=== PATIENT | male | born 1960 | race Caucasian/White ===

== ENCOUNTER 2018-02-08 17:48 | Emergency (ER) | payer OTHER ==
[~2018-02-08] VITALS: Ht 162.6 cm; Wt 57.8 kg
[2018-02-08] MEDS ORDERED: ACETAMINOPHEN 500 MG TABLET PO ONE (18:30)
[2018-02-08] MEDS ORDERED: SODIUM CHLORIDE 0.9% 1,000 ML IV ONE (18:43)
[2018-02-08 18:48] LABS: RAPID INFLUENZA A Negative (Negative); RAPID INFLUENZA B Negative (Negative)
--- NOTE | 2018-02-08 18:59 | NUR ---
PT WITH IV STARTED AND AWAITING CTA SCAN.
[2018-02-08 19:05] LABS: MEAN CORPUSCULAR HEMOGLOBIN 31.6 pg (27.5-34.5); MEAN CORPUSCULAR VOLUME 93.1 fL (81-97); MEAN PLATELET VOLUME 7.4 fL (7.4-10.4); PLATELET COUNT 242 x10^3/uL (130-400); RED BLOOD COUNT 4.35 x10^6/uL (4.38-5.82); RED CELL DISTRIBUTION WIDTH 14.5 % (9.4-14.8)
[2018-02-08] MEDS ORDERED: ACETAMINOPHEN 500 MG TABLET ONE (19:06)
[2018-02-08 19:07] LABS: HCT (SEDRATE) 41.3 % (39.2-51.8)
[2018-02-08 19:18] LABS: ANION GAP 10 mmol/L (5-15); CALCIUM 8.8 mg/dL (8.5-10.1); CHLORIDE 106 mmol/L (98-107)
[2018-02-08 19:21] LABS: BASOPHILS # (AUTO) 0.03 x10^3/uL (0-0.1); BASOPHILS % (AUTO) 0 % (0-1); EOSINOPHILS # (AUTO) 0.11 x10^3/uL (0-0.4); EOSINOPHILS % (AUTO) 1 % (1-7); LYMPHOCYTES # (AUTO) 0.53 x10^3/uL (1-3.4); LYMPHOCYTES % (AUTO) 5 % (22-44); MD SCAN; MONOCYTES # (AUTO) 1.68 x10^3/uL (0.2-0.8); MONOCYTES % (AUTO) 16 % (2-9); NEUTROPHILS # (AUTO) 7.95 x10^3/uL (1.8-6.8); NEUTROPHILS % (AUTO) 77 % (42-75)
[2018-02-08 19:28] LABS: CREATININE 0.81 mg/dL (0.7-1.3)
[2018-02-08] MEDS ORDERED: OMNIPAQUE 350 MG/ML, 100ML BOTTLE ONE (20:00)
--- NOTE | 2018-02-08 20:00 | NUR ---
PT AWAITING CTA RESULTS AND ERP RECHECK
--- NOTE | 2018-02-08 21:09 | NUR ---
TASK RN: Pt resting on gurney, placed on BP cuff and SpO2 monitor. VSS. Pt aware that we are waiting on lab results.
--- NOTE | 2018-02-08 21:14 | NUR ---
TASK RN: Dr. Danielson at bedside to discuss ED findings and POC. Pt given water to drink, per .
[2018-02-08] MEDS ORDERED: KETOROLAC 30 MG/1 ML ONE (21:58)
[2018-02-08] MEDS ORDERED: ONDANSETRON 2MG/ML, 2ML ONE (21:58)
[2018-02-08] MEDS ORDERED: KETOROLAC 30 MG/1 ML IVPush ONE (22:00)
[2018-02-08] MEDS ORDERED: ONDANSETRON 2MG/ML, 2ML IVPush ONE (22:00)
--- NOTE | 2018-02-08 22:03 | NUR ---
PT MEDICATED FOR RANKIN AND NAUSEA. PT WILL BE DC HOME IF FEELING BETTER.
[2018-02-08 22:14] VITALS: BP 115/79
== END 2018-02-08 22:26 | disposition home or self-care (01) ==
LOC: ED 20:47
DX: R50.9 Fever, unspecified (principal); R05 Cough; F12.10 Cannabis abuse, uncomplicated; J02.9 Acute pharyngitis, unspecified
CPT/HCPCS: 36415; 71275; 80048; 82040; 83605; 84145; 85025; 85651; 86140; 87040; 87400; 96361; 96374; 96375; 99284; J1885; J2405; J7030; Q9967